=== PATIENT | male | born 2000 | race Caucasian/White ===

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

== ENCOUNTER 2022-03-13 08:31 | Emergency (ER) | payer OTHER, SELFPAY ==
--- NOTE | 2022-03-13 08:33 | ED.URI ---
HPI - URI/Sore Throat General Chief Complaint: Upper Respiratory Infection Stated Complaint: sore throat Time Seen by Provider: 03/13/22 08:40 Source: patient, RN notes reviewed and old records reviewed Mode of arrival: ambulatory Limitations: no limitations History of Present Illness HPI Narrative: 21-year-old male presents to the [facility] with complaints of a sore throat. Patient reports 4 days of chills, body aches, sore throat, ear pain, nausea, vomiting. Has been trying [id number] cold medicine with no relief. MD elicited complaint: sore throat, rhinorrhea and nasal congestion Onset (ago): day(s) (4) Relieving factors: nothing Related Data Allergies Allergy/AdvReac Type Severity Reaction Status Date / Time No Known Allergies Allergy Verified 03/13/22 08:35 Review of Systems Review of Systems: All systems reviewed & are unremarkable except as noted in HPI and below Constitutional: Constitutional: Reports as per HPI, Reports chills, Reports fatigue and Denies fever(s) Eyes: Eyes: Reports no additional eye complaints ENT: Reports as per HPI, Reports otalgia, Reports facial pain, Reports headache(s), Reports nasal congestion, Reports nasal discharge and Reports sore throat Cardiovascular: Cardiovascular: Reports no additional cardiovascular complaints Respiratory: Respiratory: Reports no additional respiratory complaints Gastrointestinal: Gastrointestinal: Reports no additional gastrointestinal complaints Musculoskeletal: Musculoskeletal: Reports no additional musculoskeletal complaints Integumentary/Breasts: Skin/Breast: Reports system reviewed and no additional complaints, except as docu Neurologic: Reports system reviewed and no additional complaints, except as documented Psychiatric: Psychiatric: Reports no additional psychiatric complaints Allergic/Immunologic: Allergic/Immunologic: Reports no additional allergic/immunologic complaints [facility] Past Medical History Medical History (Updated 03/13/22 @ 09:51 by Sonja Anthony APRN) Patient denies medical problems Surgical History Surgical History (Updated 03/13/22 @ 08:49 by Sonja Anthony APRN) History of repair of ACL Age 8 Social History Social History (Updated 03/13/22 @ 08:49 by Sonja Anthony APRN) Smoking status: Current some day smoker Gender identity (if verbalized by the patient): Male Comments At the time of my signature, I reviewed and agree with the nursing past medical, surgical, social, and family history. There is no relevant family history pertinent to the patient complaint. Exam Const: General: no acute distress, alert and ill appearing acutely Nutritional Appearance: well nourished Orientation/consciousness: patient oriented x3 Limitations: no limitations HENMT: Head: normal to inspection Ears: external ears normal, EAC's normal and TM abnormal erythematous on the right and with fluid behind the TM bilateral General nose exam: Normal external nose present and Normal nares present Face and sinus: normal facial exam Mouth: Yes Normal oral and palatal mucosa present, Yes lip normal and Yes moist mucous membranes Throat: abnormal tonsil bilateral erythema, exudates and hypertrophy 2+, posterior oropharynx abnormal erythema and postnasal drainage Eyes: General: appearance normal, both eyes and all related structures Conjunctivae: conjunctivae normal Pupils: Equal, round and reactive pupils present EOM: EOMs intact bilaterally Neck: Neck: normal visual inspection, no lymphadenopathy and no meningeal signs Chest: Chest palpation & inspection: normal inspection of the chest Resp: Effort & Inspection: normal respiratory effort and no use of accessory muscles Auscultation: clear to auscultation bilaterally, no crackles, no rales, no rhonchi and no wheezes Cardio: Rate: regular rate Rhythm: regular rhythm Back/Spine/Pelvis: Cervical Spine: normal cervical lordosis Thoracic/Lumbar Spine: thoracic and lumba
[2022-03-13 08:41] VITALS: BP 131/67; PULSE 96; RESP 16; TEMP 39.1; O2SAT 99
[2022-03-13] MEDS: ACETAMINOPHEN 500 MG TABLET 1000 MG PO (08:48)
[2022-03-13 09:38] VITALS: TEMP 38.3
== END 2022-03-13 09:38 | disposition home or self-care (01) ==
PROVIDERS: Emergency Provider Nurse Practitioner; PCP Family Medicine
DX: J03.90 Acute tonsillitis, unspecified (principal); Z20.822 Contact with and (suspected) exposure to COVID-19; F17.200 Nicotine dependence, unspecified, uncomplicated
CPT/HCPCS: 87081; 87426; 87804; 99213; A9270; C9803; G0463

== ENCOUNTER 2024-11-09 14:29 | Emergency (ER) | payer SELFPAY ==
[2024-11-09 14:37] VITALS: BP 130/69; PULSE 98; RESP 20; TEMP 37.3; O2SAT 99
--- NOTE | 2024-11-09 14:38 | ED_ITS ---
HPI - URI/Sore Throat General Chief Complaint: Upper Respiratory Infection Stated Complaint: Sore Throat Time Seen by Provider: 11/09/24 14:38 Source: patient, RN notes reviewed and old records reviewed Mode of arrival: ambulatory Limitations: no limitations History of Present Illness HPI Narrative: 24-year-old male presents to the [facility] with complaints of a sore throat since yesterday. To some NyQuil last night Sudafed this morning. Related Data Allergies Allergy/AdvReac Type Severity Reaction Status Date / Time No Known Allergies Allergy Verified 11/09/24 14:34 Review of Systems Review of Systems: All systems reviewed & are unremarkable except as noted in HPI and below Constitutional: Constitutional: Reports no additional constitutional complaints ENT: Reports as per HPI and Reports sore throat Cardiovascular: Cardiovascular: Reports no additional cardiovascular complaints, Denies chest pain and Denies dyspnea Respiratory: Respiratory: Reports no additional respiratory complaints, Denies chest congestion, Denies cough and Denies dyspnea Musculoskeletal: Musculoskeletal: Reports no additional musculoskeletal complaints Integumentary/Breasts: Skin/Breast: Reports system reviewed and no additional complaints, except as docu PMFSH Past Medical History Medical History Patient denies medical problems Surgical History Surgical History History of repair of ACL Age 8 Social History Social History Smoking status: Current some day smoker Gender identity (if verbalized by the patient): Male Comments At the time of my signature, I reviewed and agree with the nursing past medical, surgical, social, and family history. There is no relevant family history pertinent to the patient complaint. Exam Const: General: cooperative, healthy appearing, comfortable, no acute distress, well developed, alert and well nourished Nutritional Appearance: well nourished Orientation/consciousness: patient oriented x3 Limitations: no limitations HENMT: Head: normal to inspection Ears: hearing grossly normal bilaterally, external ears normal, TM's normal bilaterally, EAC's normal, mastoids normal and no periauricular adenopathy Mouth: Yes Normal oral and palatal mucosa present, Yes lip normal, Yes tongue normal and Yes moist mucous membranes Throat: posterior oropharynx normal, tonsils normal, uvula midline and no uvular edema Eyes: General: appearance normal, both eyes and all related structures Alignment and Position: alignment normal Neck: Neck: normal visual inspection, full ROM, no lymphadenopathy and no meningeal signs Chest: Chest palpation & inspection: normal inspection of the chest Resp: Effort & Inspection: normal respiratory effort and able to speak in complete sentences Auscultation: clear to auscultation bilaterally, no crackles, no rales, no rhonchi and no wheezes Cardio: Rate: regular rate Skin: General skin exam: normal color and no rashes or lesions noted Neuro: General: patient oriented x3, gait normal, moves all extremities and no meningeal signs Cognition (Neuro): normal cognition Speech: normal speech Gait exam (Neuro): Normal gait present Extrem: General: normal to inspection, full ROM, capillary refill normal and normal gait Psych: Appearance: grossly normal and well kempt Mental Status: mental status grossly normal Speech and movement: Normal speech and movement present and Clear speech present Affect: normal affect Attitude: cooperative Course Course Level of Care: Express Care Visit Vital Signs Vital signs: Vital Signs Temperature 99.2 F 11/09/24 14:37 Pulse Rate 98 11/09/24 14:37 Respiratory Rate 20 11/09/24 14:37 Blood Pressure 130/69 11/09/24 14:37 Pulse Oximetry 99 11/09/24 14:37 Oxygen Delivery Room Air 11/09/24 14:37 Temperature 99.2 F 11/09/24 14:37 Pulse Rate 98 11/09/24 14:37 Respiratory Rate 20 11/09/24 14:37 Blood Pressure 130/69 11/09/24 14:37 Pulse Oximetry 99 11/09/24 14:37 Oxygen Delivery Room Air 11/09/24 14:37 Reviewed MDM - URI/Sore Throat MDM Narrative Medical decision making narrative: Patient sitting in exam room. Patient is nontoxic, vitals are stable. Patient presents with a sore throat. Strep test is negative. No acute findings noted on exam. Patient appropriate for outpatient treatment and close follow-up Discharge instructions reviewed with patient, as well as provided in writing per nursing staff. The instructions also include specific and strict return/GO TO THE ER as well as f/u information. All questions have been answered, and the patient deny any further questions with discharge and discharge plan. Some parts of this dictation were generated by voice recognition software and may contain typographical and/or grammatical inaccuracies. Differential Diagnosis Differential diagnosis: Likely upper respiratory infection, otitis media, sinusitis, viral infection, bronchitis, influenza and pharyngitis Lab Data Labs: Lab Results 11/09/24 Range/Units 14:45 POC Grp A Strep Screen Negative (Negative) Reviewed Critical Care Time Critical Care Time Critical Care Time: No Discharge Plan Discharge Clinical Impression: Pharyngitis Qualifiers: Pharyngitis/tonsillitis etiology: unspecified etiology Qualified Code(s): J02.9 - Acute pharyngitis, unspecified Patient Disposition: Home Condition: Stable Instructions: Pharyngitis (ED) Additional Instructions: Your rapid strep swab was negative today at [facility]. A throat culture will be sent to the laboratory for further testing. If the test is positive, you will receive a phone call within 48 hours and an appropriate antibiotic will be initiated at that time. It is very important to treat your symptoms. Drink plenty of water, Gatorade, Pedialyte, ice pops or Jell-O. -Alternate Tylenol and Motrin per package directions for fever or pain. You can alternate every 4 hours -Antihistamine medication such as Zyrtec/Claritin/Charline during the day can help improve symptoms. -Eat and drink things that are easy to swallow, like tea or soup, or popsicles. -Oral rinses such as: Salt water gargles and/or may use topical anesthetic (eg. Chloraseptic spray) or lozenges to relieve dryness or throat pain). -Frequent hand washing or hand telephone worker is one of the best ways to prevent spread of infection. -Using a vaporizer or humidifier at night will also help thin secretions and h elp with coughing up phlegm. -Follow up with primary care provider in 7-10 days if condition is not improving - For new or worsening symptoms go directly to the nearest ER Patient Language: [place] Leonean Prescriptions: New methylprednisolone [Medrol (Pa[place])] 4 mg tablets,dose pack See Rx Instructions PO .COMPLEX Qty: 21 0RF Rx Instructions: orally per package directions Follow-up/Referrals: Miguel,Shilo Piedra MD [Primary Care Provider] - 3 Days ([facility] follow-up, pharyngitis) Stand Alone Forms: Work/School Release IP Time of Disposition: 15:11
[2024-11-09 14:57] LABS: EDSTREPNEGPOS1 Negative (Negative)
== END 2024-11-09 15:15 | disposition home or self-care (01) ==
PROVIDERS: Emergency Provider Nurse Practitioner; PCP Family Medicine
DX: J02.9 Acute pharyngitis, unspecified (principal); F17.200 Nicotine dependence, unspecified, uncomplicated
CPT/HCPCS: 87081; 87880; 99213; G0463

== ENCOUNTER 2025-03-03 15:11 | Emergency (ER) | payer BC, SELFPAY ==
[2025-03-03 15:20] VITALS: BP 143/105; PULSE 64; RESP 20; TEMP 36.8; O2SAT 95
[2025-03-03 15:48] LABS: EDCOVIDSCREEN Negative (Negative)
--- NOTE | 2025-03-03 15:53 | ED.GENADULT ---
HPI - General Adult General Chief complaint: Upper Respiratory Infection Stated complaint: fatigue/body aches Source: patient Mode of arrival: ambulatory Limitations: no limitations History of Present Illness HPI narrative: Patient presents requesting a note to allow him to return to work tomorrow. He states on Monday of last week he developed a headache, generalized body aches and fever. He had some diarrhea but has underlying Crohn's disease. He denies any chills, abdominal pain, nausea, vomiting, shortness of breath. No recent sick contacts to his knowledge. He states his symptoms have improved with [id number] fever reducing medications and would like to return to work tomorrow. 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 He states his symptoms have resolved. Related Data Home Medications ?Medication ?Instructions ?Recorded ?Confirmed ?Last Taken ?Type No Home Medications 03/03/25 03/03/25 Unknown History Allergies Allergy/AdvReac Type Severity Reaction Status Date / Time No Known Allergies Allergy Verified 03/03/25 15:36 Review of Systems Review of Systems: CONSTITUTIONAL: Reports recent fever, none currently. Denies, chills, or sweats. EYES: Denies visual changes, redness, or discharge. ENT: Denies rhinorrhea, congestion, sore throat, or otalgia. CARDIOVASCULAR: Denies chest pain, palpitations, or edema. RESPIRATORY: Denies cough or dyspnea. GASTROINTESTINAL: Reports recent diarrhea, since resolved. Denies abdominal pain, nausea, vomiting GENITOURINARY: Denies dysuria or hematuria. SKIN: Denies rash or itching. MUSCULOSKELETAL: reports recent generalized body aches, since resolved. NEUROLOGIC: Reports recent headache, since resolved. Denies numbness, dizziness, or weakness. PSYCHIATRIC: Denies anxiety or depression. [facility] Past Medical History Medical History Crohn disease Surgical History Surgical History History of repair of ACL Age 8 Family History Family History Mother Family history non-contributory Social History Social History Smoking status: Current some day smoker Gender identity (if verbalized by the patient): Male Spiritual care concerns: No Exam Narrative: GENERAL: Well-appearing, well-nourished, and in no acute distress. HEAD: Normocephalic, atraumatic. EYES: PERRLA and EOMI. ENT: Nares clear, no rhinorrhea or epistaxis. Mucous membranes moist. Oropharynx without tonsillar hypertrophy exudate or other lesions. Bilateral TMs pearly davidson nonbulging NECK: Supple. No adenopathy or masses. No carotid bruits or JVD CHEST: Clear to auscultation. No respiratory distress. No wheezes rales or rhonchi HEART: Regular rate and rhythm. No murmur heard. Normal peripheral pulses. ABDOMEN: Soft, nontender, nondistended, normal active bowel sounds. EXTREMITIES: Normal range of motion. No edema. SKIN: Warm, dry, no rash. NEURO: No focal deficits. Alert and oriented x3. PSYCH: Normal mood and affect. Course Course Emergency Course: This is a 24-year-old male who presented requesting a COVID test and a note allowing him to return to work. COVID test here negative. No provider. Increase hydration. Pstz-lhr-pobbyxy agents for symptom management. Follow up with primary provider. Go to the ER for worsening symptoms. Patient in agreement with plan of care Level of Care: Express Care Visit Vital Signs Vital signs: Vital Signs Temperature 36.8 C 03/03/25 15:20 Pulse Rate 64 03/03/25 15:20 Respiratory Rate 20 03/03/25 15:20 Blood Pressure 143/105 H 03/03/25 15:20 Pulse Oximetry 95 03/03/25 15:20 Oxygen Delivery Room Air 03/03/25 15:20 Temperature 36.8 C 03/03/25 15:20 Pulse Rate 64 03/03/25 15:20 Respiratory Rate 20 03/03/25 15:20 Blood Pressure 143/105 H 03/03/25 15:20 Pulse Oximetry 95 03/03/25 15:20 Oxygen Delivery Room Air 03/03/25 15:20 Medical Decision Making Vital Signs Vital Signs: Vital Signs Temperature 36.8 C 03/03/25 15:20 Pulse Rate 64 03/03/25 15:20 Respiratory Rate 20 03/03/25 15:20 Blood Pressure 143/105 H 03/03/25 15:20 Pulse Oximetry 95 03/03/25 15:20 Oxygen Delivery Room Air 03/03/25 15:20 Temperature 36.8 C 03/03/25 15:20 Pulse Rate 64 03/03/25 15:20 Respiratory Rate 20 03/03/25 15:20 Blood Pressure 143/105 H 03/03/25 15:20 Pulse Oximetry 95 03/03/25 15:20 Oxygen Delivery Room Air 03/03/25 15:20 Lab Data Labs: Lab Results 03/03/25 Range/Units 15:18 POC SARS CoV-2 Ag Negative (Negative) Discharge Plan Discharge Clinical Impression: Acute viral syndrome Patient Disposition: Home Condition: Stable Instructions: Antibiotic Form, Viral Syndrome (ED) Patient Language: Icelandic Prescriptions: No Action No Home Medications Follow-up/Referrals: Miguel,Shilo Piedra MD [Primary Care Provider, Unknown] Stand Alone Forms: Work/School Release IP Time of Disposition: 15:52
== END 2025-03-03 16:04 | disposition home or self-care (01) ==
PROVIDERS: Emergency Provider Nurse Practitioner; PCP Family Medicine
DX: B34.9 Viral infection, unspecified (principal); Z20.822 Contact with and (suspected) exposure to COVID-19; K50.90 Crohn's disease, unspecified, without complications; F17.200 Nicotine dependence, unspecified, uncomplicated
CPT/HCPCS: 87426; 99212; G0463